=== PATIENT | male | born 1940 | race Caucasian/White ===

== ENCOUNTER → 2016-05-10 | Outpatient (CLI) | payer MEDICARE, OTHER | LOC: ONC 08:34 | PROVIDERS: ATTEND Radiology Radiation Oncology | DX: C61 Malignant neoplasm of prostate (principal) | CPT/HCPCS: 36415; 84153 ==

== ENCOUNTER → 2016-11-10 | Outpatient (CLI) | payer MEDICARE, OTHER | LOC: ONC 08:35 | PROVIDERS: ATTEND Radiology Radiation Oncology | DX: C61 Malignant neoplasm of prostate (principal) | CPT/HCPCS: 36415; 84153 ==

== ENCOUNTER 2017-05-10 09:13 | Outpatient (RCR) | payer MEDICARE, OTHER | END 2017-08-08 | disposition home or self-care (01) | LOC: ONC 09:13 | PROVIDERS: ATTEND Radiology Radiation Oncology | DX: C61 Malignant neoplasm of prostate (principal) | CPT/HCPCS: 84153 ==

== ENCOUNTER 2017-11-10 09:44 | Outpatient (RCR) | payer MEDICARE, OTHER | END 2017-11-20 | disposition home or self-care (01) | LOC: ONC 09:44 | PROVIDERS: ATTEND Radiology Radiation Oncology | DX: C61 Malignant neoplasm of prostate (principal) | CPT/HCPCS: 36415; 84153 ==

== ENCOUNTER 2018-05-10 08:38 | Outpatient (RCR) | payer MEDICARE, OTHER | END 2018-08-08 | disposition home or self-care (01) | LOC: ONC 08:38 | PROVIDERS: ATTEND Radiology Radiation Oncology | DX: C61 Malignant neoplasm of prostate (principal) | CPT/HCPCS: 36415; 84153 ==

== ENCOUNTER 2019-05-01 09:19 | Outpatient (RCR) | payer MEDICARE, OTHER | END 2019-07-30 | disposition home or self-care (01) | LOC: ONC 09:19 | PROVIDERS: ATTEND Radiology Radiation Oncology | DX: C61 Malignant neoplasm of prostate (principal) | CPT/HCPCS: 84153 ==